=== PATIENT | female | born 2000 | race Caucasian/White ===

== ENCOUNTER 2021-11-09 13:40 | Outpatient (REF) | payer BC, SELFPAY | END 2021-11-09 13:41 | disposition home or self-care (01) | LOC: NPINS 13:40 | PROVIDERS: PCP Physician Assistant Medical | DX: Z13.9 Encounter for screening, unspecified (principal) | CPT/HCPCS: 80323 ==

== ENCOUNTER 2021-11-19 21:27 | Emergency (ER) | payer BC, SELFPAY ==
[2021-11-19 21:36] VITALS: BP 114/77; PULSE 94; RESP 18; TEMP 35.7; O2SAT 96
--- NOTE | 2021-11-19 21:58 | CRLHL7_ITS ---
For Patients: As a result of the Century Cures Act, medical imaging exams and procedure reports are released immediately into your electronic medical record. You may view this report before your referring provider. If you have questions, please contact your health care provider. INDICATION: Postop shortness of breath. TECHNIQUE: CT chest PE was acquired with 95 mL of Isovue 370 IV contrast. Coronal and sagittal reformats were generated. COMPARISON: None. FINDINGS: Pulmonary arteries: The quality of enhancement of the pulmonary arteries is adequate. No filling defects to suggest pulmonary emboli. No findings of pulmonary artery hypertension. Thyroid: Unremarkable. Thoracic lymph nodes: No enlarged supraclavicular, mediastinal, hilar, or axillary lymph nodes. Mediastinum and esophagus: Unremarkable. Soft tissue density in the superior mediastinum is likely residual thymus. Heart and vasculature: Unremarkable. Lungs: Bibasilar opacities are suggestive of atelectasis. Pleura: Unremarkable. Chest wall: Unremarkable. Upper abdomen: No acute or significant findings. Bones: Unremarkable for age. IMPRESSION: 1. No pulmonary embolism. 2. Bibasilar atelectasis. Otherwise clear lungs. Please note that all CT scans at this facility use dose modulation, iterative reconstruction, and/or weight-based dosing when appropriate to reduce radiation dose to as low as reasonably achievable. Dictated by Ozzy Akhtar MD @ 11/19/2021 11:06:25 PM (Electronically Signed)
[2021-11-19 22:28] LABS: Basophils Absolute Auto 0.02 K/uL (0.00-0.30); Basophils Percent Auto 0.2 % (0.0-3.0); Eosinophils Absolute Auto 0.09 K/uL (0.00-0.50); Eosinophils Percent Auto 1.1 % (0.0-7.0); Hematocrit 33.1 % (33.0-51.0); Hemoglobin* 11.3 gm/dL (12.0-16.0); Immature Granulocytes Abs Auto 0.01 K/uL (0.00-0.30); Lymphocytes Absolute Auto 1.68 K/uL (0.90-2.90); Lymphocytes Percent Auto 20.8 % (20-44); Mean Corpuscular HGB Conc 34 gm/dL (32-36); Mean Corpuscular Hemoglobin 31 pg (26-34); Mean Corpuscular Volume 90 fL (80-100); Monocytes Percent Auto 7.4 % (0.0-11.0); Neutrophils Absolute Auto 5.67 K/uL (1.7-7.0); Neutrophils Percent Auto 70.4 % (42.0-72.0); Platelet Count* 321 K/uL (140-440); RDW Coefficient of Variation % 12.2 % (11.5-15.5); Red Blood Count 3.68 m/uL (4.00-5.20); White Blood Count* 8.07 K/uL (4.50-11.00)
[2021-11-19 22:39] LABS: Slide Review Reflex No
[2021-11-19 22:41] LABS: Chloride* 103 mmol/L (96-114); Potassium* 3.9 mmol/L (3.6-5.1); Sodium* 136 mmol/L (135-149)
[2021-11-19 22:44] LABS: Blood Urea Nitrogen* 18 mg/dL (5-24); Carbon Dioxide* 26 mmol/L (20-32); Creatinine* 0.9 mg/dL (0.5-1.5); Estimated Glomerular Filt Rate 92 ml/min
[2021-11-19 22:45] LABS: Calcium* 8.7 mg/dL (8.4-10.6); Glucose* 104 mg/dL (60-115)
--- NOTE | 2021-11-19 22:49 | ED.GENADULT ---
HPI - General Adult General Chief complaint: Shortness of Breath/Dyspnea Stated complaint: Trouble Breathing Time Seen by Provider: 11/19/21 21:29 History of Present Illness HPI narrative: Pt is a 21 year old woman who three days ago underwent surgery for Right sided hip dysplasia. She had the other hip done previously. Pt was resting tonight and when she got up to use the restroom she felt like she could not take a deep breath and actually felt short of breath. Symptoms lasted only a few minutes and an ambulance was summoned. Pt's symptoms had completely resolved before arrival in the ED. She has no previous history of similar symptoms and describes no chest pain, diaphoresis, nausea, vomiting or headache. No cough. Pt's oxygen saturation was 97% upon arrival in the ED. Pt is taking Oxycodone for post operative pain. No issues with the surgical site and no leg swelling. Pt is taking Asprin 325 daily likely for DVT prophylaxis. Related Data Home Medications Medication Instructions Recorded Confirmed acetaminophen 325 mg tablet 325 mg PO Q6H PRN 11/19/21 11/19/21 (Tylenol) aspirin 325 mg tablet 325 mg PO DAILY 11/19/21 11/19/21 hydroxyzine pamoate 25 mg capsule mg 11/19/21 naproxen 500 mg tablet mg 11/19/21 oxycodone 5 mg tablet mg 11/19/21 Allergies Allergy/AdvReac Type Severity Reaction Status Date / Time No Known Drug Allergies Allergy Verified 11/19/21 21:45 Review of Systems Status of ROS: Reports: 10 or more systems reviewed and unremarkable except as noted in History and below [facility] Medical History (Updated 11/19/21 @ 23:21 by Jax Henriquez MD) Concussion with loss of consciousness of unspecified duration Nose pain Pneumonia Right wrist pain Sports physical Surgical History (Updated 11/19/21 @ 22:53 by Jax Henriquez MD) History of hip surgery Family History Other Coronary artery disease Diabetes Hyperlipidemia Stroke Social History Narrative: Does not drink alcohol Does not use illicit drugs Smoker Smoking Status: Never smoker How often do you have a drink containing alcohol: never AUDIT-C Alcohol total score: 0 Non-prescribed substance use: denies use Exam Narrative: Exam Narrative: EXAM GENERAL: Patient appears comfortable and well. EYES: No scleral icterus. THYROID: no thyroid nodules or thyromegaly. LYMPH: No supraclavicular or cervical lymphadenopathy. SKIN: Visible skin seen during exam normal or with benign process only. EXT: No dependent lower extremity pedal edema. Surgical site overlying the left hip sterilely dressed. HEART: Regular rate and rhythm with no murmurs, rubs, or gallops. LUNGS: Clear to auscultation bilaterally with no crackles or wheezes. ABD: Soft, non tender, non distended. PSYCH: Good eye contact, speech is not pressured. Const: Vital Signs, click to edit/add: Vital Signs - 24 hr 11/19/21 21:36 11/19/21 22:59 Temperature 96.3 F L Pulse Rate [Right Pulse Oximeter] 94 87 Respiratory Rate 18 16 Blood Pressure [Le ft Upper Arm] 114/77 96/59 L Pulse Oximetry 96 98 Oxygen Delivery Me thod Room Air Room Air Course Course Hospital Course: Pt seen and examined. She is breathing comfortably. CT of the chest, troponin, cbc, bmp ordered Reevaluation(s) Reevaluation #1: Eveing hydroxizine, oxycodone and senna ordered. Reevaluation #2: Pt feeling well. CBC, Troponin, BMP all resonable with Hgb of 11.3. CT of chest negative for PE and pneumonia Time: 23:18 Vital Signs Vital signs: Initial Vital Signs Temperature 96.3 F L 11/19/21 21:36 Temperature Source Temporal Artery Scan 11/19/21 21:36 Pulse Rate 94 11/19/21 21:36 Pulse Rhythm 11/19/21 21:36 Respiratory Rate 18 11/19/21 21:36 Blood Pressure 114/77 11/19/21 21:36 Blood Pressure Mean 89 11/19/21 21:36 Blood Pressure Position Semi-Fowlers 11/19/21 21:36 Pulse Oximetry 96 11/19/21 21:36 Oxygen Delivery Method 11/19/21 21:36 Vital Signs Temperature 96.3 F L 11/19/21 21:36 Pulse Rate 94 11/19/21 21:36 Respiratory Rate 18 11/19/21 21:36 Blood Pressure 114/77 11/19/21 21:36 Pulse Oximetry 96 11/19/21 21:36 Oxygen Delivery Method 11/19/21 21:36 Temperature 96.3 F L 11/19/21 21:36 Pulse Rate 87 11/19/21 22:59 Respiratory Rate 16 11/19/21 22:59 Blood Pressure 96/59 L 11/19/21 22:59 Pulse Oximetry 98 11/19/21 22:59 Oxygen Delivery Method 11/19/21 22:59 Medical Decision Making MDM Narrative Medical decision making narrative: Pt metaolically stable with negative workup for heart issues and lung issues including PE. Pt sat 97% on room air with no labored respirations. Differential Diagnosis Differential Diagnosis: PE, Anemia, Angina, Pneumonia, Pneumothorax, Mucus plugging Lab Data Labs: Lab Results 11/19/21 11/19/21 Range/Units 22:20 22:20 WBC 8.07 (4.50-11.00) K/uL RBC 3.68 L (4.00-5.20) m/uL Hgb 11.3 L (12.0-16.0) gm/dL Hct 33.1 (33.0-51.0) % MCV 90 (80-100) fL MCH 31 (26-34) pg MCHC 34 (32-36) gm/dL RDW Coeff of Aroldo 12.2 (11.5-15.5) % Plt Count 321 (140-440) K/uL Neut % (Auto) 70.4 (42.0-72.0) % Lymph % (Auto) 20.8 (20-44) % Crane % (Auto) 7.4 (0.0-11.0) % Eos % (Auto) 1.1 (0.0-7.0) % Baso % (Auto) 0.2 (0.0-3.0) % Neut # (Auto) 5.67 (1.7-7.0) K/uL Lymph # (Auto) 1.68 (0.90-2.90) K/uL Crane # (Auto) 0.60 (0.00-0.90) K/UL Eos # (Auto) 0.09 (0.00-0.50) K/uL Baso # (Auto) 0.02 (0.00-0.30) K/uL Abs Immat Gran (auto) 0.01 (0.00-0.30) K/uL Sodium 136 (135-149) mmol/L Potassium 3.9 (3.6-5.1) mmol/L Chloride 103 (96-114) mmol/L Carbon Dioxide 26 (20-32) mmol/L BUN 18 (5-24) mg/dL Creatinine 0.9 (0.5-1.5) mg/dL Estimated GFR 92 ml/min Glucose 104 (60-115) mg/dL Calcium 8.7 (8.4-10.6) mg/dL Troponin I < 0.01 L (0.01-0.04) ng/mL Discharge Plan Discharge Clinical Impression: Shortness of breath Condition: Stable Instructions: Shortness of Breath (ED) Additional Instructions: Continue current medications with caution of oxycodone Follow up with your doctor as needed Activity Level: Activity as Tolerated Discharge Diet: Regular Prescriptions: No Action naproxen 500 mg tablet oxycodone 5 mg tablet hydroxyzine pamoate 25 mg capsule aspirin 325 mg tablet 325 mg PO DAILY acetaminophen [Tylenol] 325 mg tablet 325 mg PO Q6H PRN Follow Up/Referrals: Provider,Not a Local [Primary Care Provider] - Stand Alone Forms: MyHealth Info Instructions
[2021-11-19] MEDS: OXYCODONE 5 MG TABLET PO (22:56)
[2021-11-19] MEDS: hydrOXYzine pamoate 25 MG CAPSULE PO (22:56)
[2021-11-19 22:57] LABS: Troponin I* < 0.01 ng/mL (0.01-0.04)
[2021-11-19 22:59] VITALS: BP 96/59; PULSE 87; RESP 16; O2SAT 98
[2021-11-19] MEDS: SENNOSIDES/DOCUSATE TABLET 1 TAB PO (23:20)
== END 2021-11-19 23:54 | disposition home or self-care (01) ==
PROVIDERS: Emergency Provider Internal Medicine
DX: R06.02 Shortness of breath (principal)
CPT/HCPCS: 36415; 71260; 80048; 84484; 85025; 93005; 99283; 99284; A9270; Q9967

== ENCOUNTER 2023-01-24 07:54 | Outpatient (CLI) | payer BC, SELFPAY ==
--- NOTE | 2023-01-24 08:15 | CRLHL7_ITS ---
For Patients: As a result of the Century Cures Act, medical imaging exams and procedure reports are released immediately into your electronic medical record. You may view this report before your referring provider. If you have questions, please contact your health care provider. INDICATION: First trimester scan, establish dates. COMPARISON: None. TECHNIQUE: Real-time figueroa-scale imaging of the pelvis was performed. FINDINGS: Sonographic imaging demonstrates a single living intrauterine gestation. The embryo demonstrates a regular cardiac rate measuring 173 beats per minute. The embryo`s crown-rump length measurement of 2.4 cm corresponds to a gestational age of 9 weeks 1 day with a sonographic due date of 08/28/2023. There is a normal-appearing yolk sac. There are no gross abnormalities noted within the embryo at this early state of development. The gestational sac has a normal appearance. There is no evidence of a perigestational hemorrhage. The amount of fluid within the sac appears appropriate for gestational age. The cervix is closed. The myometrium appears normal. The ovaries are of normal size. Corpus luteal cyst left ovary. There are no suspicious fluid collections noted in the cul-de-sac. IMPRESSION: Normal first trimester OB ultrasound exam. Gestational age calculated at 9 weeks 1 day with a sonographic due date of 08/28/2023. Dictated by Micah Zuniga MD @ 01/24/2023 1:31:25 PM (Electronically Signed)
== END 2023-01-24 07:55 | disposition home or self-care (01) ==
PROVIDERS: PCP Family Medicine; Visit Provider Registered Nurse
DX: Z34.91 Encounter for supervision of normal pregnancy, unspecified, first trimester (principal); Z3A.09 9 weeks gestation of pregnancy
CPT/HCPCS: 76817; 86592; 86703; 86704; 86706; 86762; 86787; 86803; 86850; 86900; 86901; 87086; 87340

== ENCOUNTER 2023-02-14 09:46 | Outpatient (CLI) | payer BC, SELFPAY ==
[2023-02-14 16:02] LABS: Chlamydia DNA Amplified* NOT DETECTED (No Detected); GC DNA Amplified* NOT DETECTED (No Detected)
== END 2023-02-14 09:47 | disposition home or self-care (01) ==
PROVIDERS: PCP Family Medicine; Visit Provider Obstetrics & Gynecology
DX: Z34.00 Encounter for supervision of normal first pregnancy, unspecified trimester (principal)
CPT/HCPCS: 87491; 87591

== ENCOUNTER 2023-04-11 10:01 | Outpatient (CLI) | payer BC, SELFPAY ==
--- NOTE | 2023-04-11 10:15 | CRLHL7_ITS ---
For Patients: As a result of the Century Cures Act, medical imaging exams and procedure reports are released immediately into your electronic medical record. You may view this report before your referring provider. If you have questions, please contact your health care provider. INDICATION: Evaluate anatomy. COMPARISON: 01/24/2023 TECHNIQUE: Real time figueroa scale imaging of the fetus was performed as well as color Doppler analysis of the umbilical vessels. FINDINGS: Sonographic imaging demonstrates a single living intrauterine gestation. Fetus demonstrates a regular cardiac rate of 139 beats per minute. Fetus has a vertex position. The placenta lies posterior without evidence of placenta previa. Placental edge 3.7 cm from the internal cervical os. Amniotic fluid volume appears normal. Single deepest vertical pocket: 3.8 cm. The cervix is closed and measures 4.0 cm in length. The composite ultrasound gestational age is calculated at 20 weeks 4 days with an estimated sonographic due date of 08/25/2023. The estimated weight is 384 grams which lies at the 90th %. The following biometric measurements were obtained: Biparietal diameter: 4.9 cm/20 weeks 5 days 77th% Head circumference: 18.3 cm/20 weeks 5 days 72nd% Abdominal circumference: 16.6 cm/21 weeks 4 days 90th% Femur length: 3.2 cm/20 weeks 0 days 45th% The HC/AC ratio measures: 1.10 range (1.07-1.25) On anatomic survey, there is a normal appearance of the cerebral ventricles, cavum septi pellucidi, cisterna magna and cerebellum. The nose, lips, and facial profile appear normal. The cervical, thoracic and lumbar spine are well visualized and appear normal. There is a normal four-chamber heart view and the left and right ventricular outflow tracts appear normal. The diaphragm and stomach appear normal. The kidneys and bladder also appear normal. There is a normal three-vessel cord and there is an eccentric cord insertion site. The four extremities appear normal. IMPRESSION: Concordance of clinical and sonographic dating. No intrinsic abnormalities noted on anatomic survey. Dictated by Micah Zuniga MD @ 04/11/2023 12:44:56 PM (Electronically Signed)
== END 2023-04-11 10:02 | disposition home or self-care (01) ==
LOC: US 10:02
PROVIDERS: PCP Family Medicine; Visit Provider Obstetrics & Gynecology
DX: Z34.92 Encounter for supervision of normal pregnancy, unspecified, second trimester (principal); Z3A.20 20 weeks gestation of pregnancy
CPT/HCPCS: 76805; 76817

== ENCOUNTER 2023-06-06 13:02 | Outpatient (CLI) | payer BC, SELFPAY | END 2023-06-06 13:03 | disposition home or self-care (01) | LOC: NFLDREF 06-09 06:42 | PROVIDERS: PCP Family Medicine; Referring Provider Family Medicine; Visit Provider Obstetrics & Gynecology | DX: Z34.83 Encounter for supervision of other normal pregnancy, third trimester (principal) | CPT/HCPCS: 86592 ==

== ENCOUNTER 2023-06-16 08:14 | Outpatient (CLI) | payer BC, SELFPAY | END 2023-06-16 08:15 | disposition home or self-care (01) | LOC: NFLDREF 10:32 | PROVIDERS: PCP Family Medicine; Referring Provider Family Medicine; Visit Provider Obstetrics & Gynecology | DX: R73.09 Other abnormal glucose (principal) | CPT/HCPCS: 82951; 82952 ==

== ENCOUNTER 2023-07-18 10:39 | Outpatient (CLI) | payer BC, SELFPAY | END 2023-07-18 10:40 | disposition home or self-care (01) | LOC: NFLDREF 07-21 05:25 | PROVIDERS: PCP Family Medicine; Referring Provider Family Medicine; Visit Provider Obstetrics & Gynecology | DX: O99.013 Anemia complicating pregnancy, third trimester (principal); D64.9 Anemia, unspecified; Z3A.34 34 weeks gestation of pregnancy | CPT/HCPCS: 82728 ==

== ENCOUNTER 2023-08-04 16:14 | Outpatient (CLI) | payer BC, SELFPAY ==
[2023-08-05 15:38] LABS: Strep B DNA Probe Negative (Negative)
[2023-08-05 19:37] LABS: Strep B Susceptibility Needed? No
== END 2023-08-04 16:15 | disposition home or self-care (01) ==
LOC: NFLDREF 16:15
PROVIDERS: PCP Family Medicine; Visit Provider Obstetrics & Gynecology
DX: Z34.93 Encounter for supervision of normal pregnancy, unspecified, third trimester (principal); Z3A.36 36 weeks gestation of pregnancy; Z88.0 Allergy status to penicillin
CPT/HCPCS: 87081; 87653

== ENCOUNTER 2023-08-16 16:43 | Outpatient (CLI) | payer BC, SELFPAY ==
[2023-08-16 16:56] VITALS: PULSE 111; O2SAT 85
[2023-08-16 17:09] VITALS: BP 109/67; PULSE 96; RESP 18; TEMP 37.2
[2023-08-16] MEDS: ACETAMINOPHEN 500 MG TABLET 1000 MG PO (17:43)
[2023-08-16] MEDS: LACTATED RINGERS 1000 ML 1,000 ML 125 ML IV (17:44)
--- NOTE | 2023-08-16 19:26 | PC.OBNST ---
NST Note NST Note Start: 08/16/23 16:51 Freq: ONCE Status: Active Protocol: Document 08/16/23 19:00 SABRINA (Rec: 08/16/23 19:26 SABRINA [id number]) NST Note 2 Para (# of births) 0 EDC 08/29/23 Gestational Age In Weeks & Days 38 Weeks & 1 Days Patient Presented with Complaint(s) of Contractions/cramping Reactive Yes Appropriate for Gestational Age Yes VALENTE Valenzuela Date 08/16/23 Reactive Yes Appropriate for Gestational Age Yes VALENTE Montoya Date 08/16/23 OB NST charge Yes Complete NST Note via Write Note Yes The provider's electronic signature indicates the NST is reactive/appropriate for gestational age. *Note to provider: If an addendum is required, open the patient's chart and click on the note under the Nurse/Allied Health tab.
== END 2023-08-16 19:34 | disposition home or self-care (01) ==
LOC: OB OUT 16:44 → OB 16:44
PROVIDERS: PCP Family Medicine; Visit Provider Obstetrics & Gynecology
DX: O47.1 False labor at or after 37 completed weeks of gestation (principal); Z3A.38 38 weeks gestation of pregnancy
CPT/HCPCS: 59025; G0463; A9270; J7120

== ENCOUNTER 2023-08-22 04:58 | Inpatient (IN) | payer BC, SELFPAY ==
[2023-08-22] VITALS (22 sets, daily range): BP systolic 103–134; BP diastolic 53–88; PULSE 55–82; RESP 16–20; TEMP 36.4–36.8; O2SAT 97–99; BMI 33.3
[2023-08-22 05:55] LABS: Hemoglobin* 11.1 gm/dL (12.0-16.0)
[2023-08-22] MEDS: LACTATED RINGERS 1000 ML 1,000 ML IV (06:00)
--- NOTE | 2023-08-22 06:58 | P.LDBA_ITS ---
Subjective History of Present Illness Time Seen by Provider: 06:58 Date Seen: 08/22/23 Narrative: Patient is being admitted to Labor and Delivery for scheduled primary delivery. She is a 23 year old at 39.0 weeks gestation. Her full history and physical was dictated by myself on 08/04/23. Please see this for details. Patient presents for routine care. Concern(s) this visit: None. She's excited for her baby's birthday! Active movement. Denies LOF, vaginal bleeding or abnormal vaginal discharge. Rare contractions. Specific Issues/Plans G 2 P 0 1. Bilateral borderline hip dysplasia, diagnosed age 20. * History of 4 hip surgeries, including bilateral arthroscopy, periacetabular osteotomies, and removal of hardware. * At 02/14 visit, she was under the impression that she may need a delivery. Per ortho (Dr. Romero [facility]), now restrictions on route of delivery or positioning during labor. She would like to request a C/S. Encouraged her to discuss at her next visit. Discussed on 06/20/23. * 2. 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 Chronic leg and hip pain. Not taking anything for pain. 3. Anemia - diagnosed on 06/05 but patient never started iron. * 34 week Hgb unchanged at 10.4. Strongly encouraged daily oral iron and reinforced importance of compliance. * Recheck Hgb at 37-38 weeks, consider IV iron PRN * Hgb at 38 weeks: 10.9 Flu: Not vaccinated. Recommended. Declined. Encouraged her to consider for future visits. Covid: Not vaccinated. Recommended. Reviewed risks of COVID infection in . Encouraged to consider this at a future visit. TDAP:06/20/23 H&P: Dr. Worley by 08/04/23 OB - Problem Based A/P Additional Plan (1) Hip dysplasia: Problem details: has had multiple surgeries in [place] to correct this Status: Acute Plan: - Opted for primary delivery due concern hip pain and positioning of vaginal delivery (2) Anemia: Status: Acute Plan: - Hgb 11.1 today. Wnl for 3rd trimester (3) : Status: Acute Plan - Reviewed risks/benefits/ and alternatives for primary delivery. Patient desires to proceed and all questions answered. - 08/22/23 Hgb/plt:11.1/263 - 08/22/23 T&S: 0+/negative - Will proceed with schedule primary delivery OB Exam Physical Exam Vital signs: Temp Pulse Resp BP 97.9 F 81 16 111/78 08/22/23 05:32 08/22/23 05:32 08/22/23 05:32 08/22/23 05:32 Narrative: Physical exam: General: No acute distress Psych: Alert and oriented x4, full affect HEENT: Normocephalic, atraumatic Lungs: Unlabored breathing Abdomen: Gravid, soft, no tenderness, rebound, or guarding. Skin: No lesions or rashes Lower extremities: No edema or erythema Pelvic exam: Deferred
[2023-08-22 07:25] LABS: Basophils Absolute Auto 0.03 K/uL (0.00-0.30); Basophils Percent Auto 0.4 % (0.0-3.0); Eosinophils Absolute Auto 0.06 K/uL (0.00-0.50); Eosinophils Percent Auto 0.8 % (0.0-7.0); Hematocrit 34.2 % (33.0-51.0); Immature Granulocytes Abs Auto 0.03 K/uL (0.00-0.30); Immature Granulocytes Pct Auto 0.4 %; Lymphocytes Absolute Auto 1.93 K/uL (0.90-2.90); Lymphocytes Percent Auto 24.2 % (20-44); Mean Corpuscular HGB Conc 33 gm/dL (32-36); Mean Corpuscular Hemoglobin 30 pg (26-34); Mean Corpuscular Volume 91 fL (80-100); Monocytes Percent Auto 6.4 % (0.0-11.0); Neutrophils Percent Auto 67.8 % (42.0-72.0); Platelet Count* 263 K/uL (140-440); RDW Coefficient of Variation % 15.5 % (11.5-15.5); Red Blood Count 3.78 m/uL (4.00-5.20); White Blood Count* 7.96 K/uL (4.50-11.00)
[2023-08-22 07:30] LABS: Slide Review Reflex No
[2023-08-22] MEDS: CEFAZOLIN 2 GM INJ IVP (07:40)
[2023-08-22] MEDS: KETOROLAC 30 MG/ML inj IVP ×3 (08:30→20:32)
--- NOTE | 2023-08-22 08:45 | P.OBPRC_ITS ---
Procedure Time Seen by Provider: 08:45 Date of procedure: 08/22/23 Will [facility] bill your pro fee for this procedure?: Yes Procedure Description: DELIVERY BY SECTION Date of Service: 08/22/23 Delivery time: 756 Summary: Admitted for schedule primary delivery at 39.0, Primary Lower uterine transverse section, Pfannenstiel, Closed with sutures, QBL 925 cc, No complications, Findings: Normal uterus, bilateral ovaries and tubes 9, 9 weight 3940 g. Primary Indication: 1. Elective primary delivery due to multiple hip surgeries Procedures: Primary Lower uterine transverse section Specimens Removed: Placenta Surgeon: Jeanna Worley MD Anesthesia: Spinal, TAP Report: Prophylactic antibiotic, 2 g of Ancef was given before patient was taken to OR. After arrival to the operating room patient was placed in the supine position with left lateral tilt after administration of spinal anesthesia. Laparotomy A pfannenstiel incision was made through the anterior abdominal wall with #10 scalpel approximately 2 cm above the pubic symphysis. The incision was extended sharply with the #10 scalpel through the subcutaneous tissue to the level of fascia. The fascia was entered sharply with a #10 scalpel (Pfannenstiel) in the midline and extended in semi-elliptical fashion with digits. The rectus muscles were in the midline bluntly with digits. The peritoneum was then entered bluntly. The peritoneal incision was then extended superiorly and inferiorly under direct visualization with care being taken to avoid bladder and bowel. No adhesions were noted. The peritoneal incision was enlarged bluntly by lateral traction from the surgeon's and certified surgical tech/first assistant's hand. Reji retractor was inserted into the abdomen. Delivery A bladder flap was not created as it was low off the lower uterine segment. A low transverse hysterotomy was made then with #10 scalpel and extended laterally and cephalad with fingers in a low transverse fashion with Manu Skinner technique with care being taken to avoid injury to the fetus. The amniotic cavity (membrane) was then entered with spontaneous rupture of membrane, and the amniotic fluid was noted to be clear, fetus was delivered cephalic. With delivery of the baby, no extension was noted. Placenta was delivered spontaneously with steady traction on cord and manual separation of placenta from uterine wall. Closure Uterine cavity was cleaned after placental delivery with lap sponge x 3. The hysterotomy was closed in two layers with stitches using 0 vicryl with continuous locking stitches and 0 monocryl in a continuous non locking manner. An additional [id number] was placed in the middle of the hysterotomy. Hemostasis was achieved as needed with electrocautery. The ovaries/tubes/uterine surface were evaluated. They were found to be normal. Reji retractor removed and hemostasis was confirmed again. Fascia was closed with running stitches using 0 vicryl. Subcutaneous layer was irrigated. Hemostasis was checked for and found to be adequate. The subcutaneous layer was closed with running 2-0 vicryl sutures. The skin was closed with 4-0 subcuticular sutures . The incision was cleaned, Exofin applied, and Mepilex dressing placed. The procedure considered terminate at this time. Intraoperative Complications: None QBL: 925 cc. Initial uterine atony due to size. Uterotonics: 40u of pitocin, 1g of TXA Disposition: The patient tolerated the procedure well. She was recovered in Obstetric PACU for close monitoring in stable condition, with a contracted uterus and normal transvaginal bleeding. The was sent to mother's bedside. The placenta was not sent to pathology. Debrief with OR team performed and specimen reviewed at the conclusion of the procedure.
--- NOTE | 2023-08-22 08:51 | W.ANESCHARGE ---
Anesthesia Charges Start Date/Time Anesthesia Start Date: 08/22/23 Anesthesia Start Time: 07:28 Stop Date/Time Anesthesia Stop Date: 08/22/23 Anesthesia Stop Time: 08:48
--- NOTE | 2023-08-22 10:25 | P.NB_ITS ---
Nerve Block Nerve Block Time Seen by Provider: 08:30 Date Seen: 08/22/23 Type of block requested by surgeon for post-operative analgesia: TAP Side: bilateral Time out performed: Yes Verification of patient name: Yes Verification of date of : Yes Site marking: site marked Name of person performing procedure: Kalpesh Continuous monitoring Was continuous monitoring of O2 sat, B/P, air sampling and monitoring, recorded every 15 minutes?: Yes Procedure Checklist: sterile prep, needles and gloves Ultrasound guided. Images saved: Yes Medications given in 5ml increments after negative aspiration: Marcaine %: 0.25 mL: 30 Needle gauge: 20 and Exparel mL: 10 Patient tolerated procedure well: Yes Additional comments: Needle noted between internal oblique and transversus abdominus. Local spread visualized Block Charges Block Charge (with Pro Fee): TAP Bilateral Use of Ultrasound Machine for Block: Yes- US Guidance/pain block
--- NOTE | 2023-08-22 10:26 | W.ANESCHARGE ---
Anesthesia Charges Start Date/Time Anesthesia Start Date: 08/22/23 Anesthesia Start Time: 07:28 Stop Date/Time Anesthesia Stop Date: 08/22/23 Anesthesia Stop Time: 08:48
[2023-08-22] MEDS: LACTATED RINGERS 1000 ML 1,000 ML 100 ML IV (10:41)
[2023-08-23] VITALS (11 sets, daily range): BP systolic 105–113; BP diastolic 68–76; PULSE 71–80; RESP 16–18; TEMP 36.5–36.9; O2SAT 96–98
[2023-08-23] MEDS: LACTATED RINGERS 1000 ML 1,000 ML IV (00:47)
[2023-08-23] MEDS: KETOROLAC 30 MG/ML inj IVP ×3 (04:09→16:25)
[2023-08-23] MEDS: SODIUM CHLORIDE 0.9 % (FLUSH) 10 ML SYRINGE IVF ×2 (04:10)
[2023-08-23 06:49] LABS: Hemoglobin* 8.7 gm/dL (12.0-16.0)
--- NOTE | 2023-08-23 09:27 | P.OBPN_ITS ---
OB - PN:Subj Subjective Time Seen by Provider: 09:00 Date Seen: 08/23/23 Patient comments OB post-: no complaints status: doing well [place] feeding status: breast and bottle feeding Narrative: Eulalia is a 23yo seen on POD1 from primary delivery performed for maternal request with history of hip dysplasia. Her delivery was uncomplicated. course has been unremarkable. Eulalia is feeling well today, though very fatigued. She notes some lower abdominal pain and incisional tenderness. Pain overall is well controlled. She has been tolerating p.o. intake without nausea or vomiting. Ambulates without dizziness or lightheadedness. She notes she is able to empty her bladder adequately. Has not yet passed flatus. Lochia is minimal. OB - PN: Obj Exam Physical Exam: Vital signs: Temp Pulse Resp BP Pulse Ox O2 Del Method 98.2 F 74 16 105/68 96 Room Air 08/23/23 03:54 08/23/23 03:54 08/23/23 05:19 08/23/23 03:54 08/23/23 03:54 08/23/23 03:54 Narrative: Vital signs reviewed and within normal limits. General: Alert and oriented, no acute distress Psych: Appropriate mood and affect Abdomen: Soft, nondistended and mild lower abdominal tenderness consistent with postoperative state. Fundus at 1 below umbilicus, nontender. Incision is covered with dressing, clean and dry. Offered to remove this, she wished to do it after resting. Lower extremities: Trace bilateral edema. No calf tenderness, erythema or swelling. Urinary Catheter Management: Urethral: Cath placed during this visit: yes, but has since been removed by the nurse Reason for continuing: decision to DC catheter Insertion date: 08/22/23 Insertion time: 07:46 Removal date: 08/22/23 Removal time: 23:45 OB - PN: Obj Data Labs Labs: Laboratory Results - last 24 hr 08/23/23 06:34 Hgb 8.7 L OB - PN: A/P Delivery Assessment and Plan (1) Hip dysplasia: Problem details: has had multiple surgeries in [place] to correct this Status: Acute (2) Anemia: Status: Acute (3) : Status: Acute Plan Eulalia is a 23yo seen on POD1 from primary . was complicated by history of maternal bilateral hip dysplasia and anemia. Delivery itself was uncomplicated. , she is feeling well and meeting appropriate postop milestones. - Hemoglobin is noted to be 8.7 from 11.1 preop, plan to recheck at noon to ensure stability. She ambulates without dizziness or lightheadedness, no chest pain or shortness of breath. Vital signs within normal limits, adequate urine output and on abdominal exam. Recommend iron supplementation . - Patient has yet to pass flatus, continue bowel regimen and we will monitor for return of bowel function. - Otherwise routine cares and /pumping support.
[2023-08-23] MEDS: DOCUSATE SODIUM 100 MG CAPSULE PO (10:31)
[2023-08-23] MEDS: IBUPROFEN 600 MG TABLET PO (23:22)
[2023-08-24 00:08] LABS: Rapid Plasma Reagin (RPR) Non Reactive (Non Reactive)
[2023-08-24] MEDS: ACETAMINOPHEN 500 MG TABLET 1000 MG PO (07:04)
[2023-08-24 08:23] VITALS: BP 115/74; PULSE 93; RESP 16; TEMP 36.5; O2SAT 98
--- NOTE | 2023-08-24 08:28 | P.DS_ITS ---
DS: Providers Provider Time Seen by Provider: 08:15 Date Seen: 08/24/23 Date of admission: 08/22/23 04:58 Primary care physician: Carmine Pérez MD Admitting Clinician: Jeanna Worley MD Attending Physician on discharge: Brooke Parsons MD Exam Narrative: Exam Narrative: Vital signs reviewed and within normal limits. General: Alert and oriented, no acute distress Psych: Appropriate mood and affect Abdomen: Soft, nondistended and non-tender. Fundus at 1 below umbilicus, nontender. Incision is well approximated without separation, ecchymosis erythema or drainage. Superficial surgical glue on. Lower extremities: Trace bilateral edema. No calf tenderness, erythema or swelling. Const: Vital Signs, click to edit/add: Vital Signs - 24 hr 08/23/23 09:31 08/23/23 16:30 08/23/23 23:23 Temperature 97.7 F 98.1 F 97.8 F Pulse Rate [Blood Pressure Cuff] 73 80 71 Respiratory Rate 16 16 18 Blood Pressure [Ri ght Arm] 105/70 111/73 113/74 Pulse Oximetry 97 98 97 Oxygen Delivery Me thod Room Air Room Air Room Air OB - DS: Summary Hospital Course Hospital Course: The patient is a 23 year old G 2 P 1 at 39 weeks gestation that was admitted to the Center on 08/22/23 for primary delivery. She had an uncomplicated delivery. She delivered a viable female . She is pumping and bottle feeding. the patient has done well. She is seen on POD2. Eulalia is feeling well with no acute concerns this morning. She notes her pain is well controlled on ibuprofen and Tylenol. Describes her pain as a soreness primarily. She has not taken any oxycodone but would be interested in a small prescription to have on hand for breakthrough pain at home. Tolerating p.o. intake without nausea or vomiting. Voiding without difficulty. Passing flatus, no bowel movement yet. Lochia is minimal. Ambulates without dizziness or lightheadedness. She is pumping and bottle-feeding colostrum and her milk for baby at this time. Her feeding plan is exclusive pumping, where she will supplement with formula as needed. Eulalia has no mood concerns this morning. Peripartum Data Procedures: Procedures Operation Date: 08/22/23 07:15 Actual Procedure Side Surgeon p Primary Section Not Applicable Jeannasamia Worley MD [place] Gender: Female Time Spent with Patient Time attestation: Total time spent providing and/or coordinating discharge services: Discharge Plan Discharge Disposition: Home, Self-Care Date of Admission: 08/22/23 04:58 Primary Care Provider: Carmine Pérez Condition: Stable Anticipated Discharge Date/Time: 08/24/23 08:30 Discharge Medications: New oxycodone 5 mg Tablet 5 mg PO Q6H PRN (Reason: Pain) Qty: 5 0RF Continued vit-iron fum-folic ac [ Vitamin with Minerals] 28 mg iron- 800 mcg tablet 1 tab PO QDAY ferrous sulfate 325 mg (65 mg iron) tablet 325 mg PO QDAY Qty: 30 0RF Rx Instructions: Take one tablet orally every Friday, Friday and Friday Discharge Orders: Discharge Order (Routine); Ordered 08/24/23 Ordered By: Ashley Parsons Additional Instructions: Discharge instructions were reviewed with the patient including signs and symptoms of infection and home going medications Lifting Restrictions: 20 pounds for 6 weeks No not submerge incision under water X 2 weeks? Nothing vaginally for 6 weeks: no tampons or intercourse Do not drive while taking narcotic pain medication(s) Off Work or School for 8 weeks Symptoms to report to doctor: * Bleeding that saturates more than one pad per hour * Passing clots larger than the size of a golf ball * Pain not relieved by prescribed medication * Fever above 100.4 degrees Fahrenheit * A foul vaginal odor * Difficulty in emotions, mood, and functions * Thoughts of hurting yourself and/or * Painful, reddened area in your breast * Any drainage, redness, or tenderness in your IV/epidural site * Severe headache that doesn't improve after taking medications * Changes in vision, including temporary loss of vision, blurred vision, and/or light sensitivity * Upper abdominal pain (usually under ribs on the right side) * Decrease in urination or painful, frequent urinating * Chest pain * Shortness of breath * Tenderness or pain with redness and/swelling in the calf(s) of your leg Optional 2-week visit: incision check, discuss feeding concerns, review control options and screen for anxiety/depression. 6-week visit for an annual exam. consultation services are available to all mothers and babies for the first year after delivery.? To make an appointment, please call [phone]. Discharge Diet: Regular Follow Up Appointments: Carmine Pérez MD [Primary Care Provider] - Forms: [employer] Info Instructions
[2023-08-24] MEDS: DOCUSATE SODIUM 100 MG CAPSULE PO (08:36)
[2023-08-24] MEDS: IBUPROFEN 600 MG TABLET PO (10:37)
== END 2023-08-24 11:45 | disposition home or self-care (01) | DRG 540 ==
PROVIDERS: Obstetrics & Gynecology; Admitting Provider Obstetrics & Gynecology; PCP Family Medicine; Visit Provider Obstetrics & Gynecology
PROC: 10D00Z1 Extraction of Products of Conception, Low, Open Approach (ICD-10-PCS; CPT 59514; principal; 2023-08-22 07:15)
DX: O33.0 Maternal care for disproportion due to deformity of maternal pelvic bones (principal); Q65.89 Other specified congenital deformities of hip; M16.2 Bilateral osteoarthritis resulting from hip dysplasia; O62.2 Other uterine inertia; O99.02 Anemia complicating childbirth; G89.18 Other acute postprocedural pain; D64.9 Anemia, unspecified; Z3A.39 39 weeks gestation of pregnancy; Z37.0 Single live birth
CPT/HCPCS: 01961; 36415; 64488; 76942; 85018; 85025; 86592; 86850; 86900; 86901; A9270; J0690; J1100; J1200; J1885; J2274; J2371; J2405; J2590; J2765; J7120

== ENCOUNTER 2024-01-15 19:59 | Emergency (ER) | payer OTHER, SELFPAY ==
[2024-01-15 20:07] VITALS: BP 122/81; PULSE 99; RESP 18; TEMP 36.7; O2SAT 99; BMI 27.4
--- NOTE | 2024-01-15 20:24 | CRLHL7_ITS ---
For Patients: As a result of the Century Cures Act, medical imaging exams and procedure reports are released immediately into your electronic medical record. You may view this report before your referring provider. If you have questions, please contact your health care provider. INDICATION: Chest pain. Back pain. TECHNIQUE: Chest 2 views. COMPARISON: None. FINDINGS: Cardiovascular and mediastinum: Heart size and vasculature are normal in caliber and appearance. Lungs and pleural spaces: Lungs are clear. No sign of infiltrate or mass. No sign of pleural effusion. No pneumothorax. Bones and soft tissues: No significant findings. IMPRESSION: No acute or significant findings. Dictated by Tao Geller MD @ 01/15/2024 8:58:17 PM (Electronically Signed)
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
[2024-01-15] MEDS: KETOROLAC 10 MG TABLET PO (20:30)
== END 2024-01-15 21:23 | disposition home or self-care (01) ==
PROVIDERS: Emergency Provider Family Medicine; PCP Physician Assistant Medical
DX: M62.830 Muscle spasm of back (principal); V43.52XA Car driver injured in collision with other type car in traffic accident, initial encounter
CPT/HCPCS: 71046; 99283; 99284; A9270